=== PATIENT | female | born 1985 | race Two or more races ===

== ENCOUNTER 2016-10-27 22:10 | Emergency (ER) | payer SELFPAY ==
[~2016-10-27] VITALS: Ht 162.6 cm; Wt 65.8 kg
[2016-10-27] MEDS ORDERED: ONDANSETRON HCL/PF 4 MG/2 ML VIAL ONE (22:20)
[2016-10-27] MEDS ORDERED: diphenhydrAMINE HCL 50 MG/ML VIAL ONE (22:20)
[2016-10-27] MEDS ORDERED: methylPREDNISolone SOD SUCC 125 MG/2ML VIAL ONE (22:20)
[2016-10-27] MEDS ORDERED: FAMOTIDINE/PF INJ 20 MG/2 ML VIAL IV ONE ×2 (22:21→22:30)
--- NOTE | 2016-10-27 22:28 | NUR ---
RECEIVED PT. PT TRASNFERED TO ER BED 5.
--- NOTE | 2016-10-27 22:29 | NUR ---
PT BB RA FROM STORE FOR ALLERGIC REACTION S/P EATING AVOCADO. PT AOX3 RR EVEN AND UNLABORED. NO SOB NOTED. NAD NOTED. NO NVD AT THIS TIME. PT PLACED ON MONTIOR WAITING FOR MD BELLO.
[2016-10-27] MEDS ORDERED: methylPREDNISolone SOD SUCC 125 MG/2ML VIAL IV ONE (22:30)
[2016-10-27] MEDS ORDERED: IV NS 0.9% 1,000 ML BAG IV ONE (22:30)
[2016-10-27] MEDS ORDERED: diphenhydrAMINE HCL 50 MG/ML VIAL IV ONE (22:30)
[2016-10-27] MEDS ORDERED: ONDANSETRON HCL/PF 4 MG/2 ML VIAL IVP ONE (22:30)
--- NOTE | 2016-10-27 22:31 | NUR ---
IV ACCESS SPACE BUYER. BLOOD DRAWN FOR LABS. PT MEDICATED ORDERED.
[2016-10-27 22:35] LABS: BASOPHILS % (AUTO) 0.3 % (0.0-2.0); EOSINOPHILS % (AUTO) 0.3 % (0.0-6.0); HEMATOCRIT 37 % (33-45); HEMOGLOBIN 12.4 g/dL (11.5-14.8); LYMPHOCYTES # (AUTO) 4.7 /CMM (0.8-4.8); LYMPHOCYTES % (AUTO) 62.1 % (20.0-44.0); MEAN CORPUSCULAR HEMOGLOBIN 29 PG (26.0-33.0); MEAN CORPUSCULAR HGB CONC 34 g/dl (31.0-36.0); MEAN CORPUSCULAR VOLUME 87 fL (82-100); MONOCYTES # (AUTO) 0.2 /CMM (0.1-1.30); MONOCYTES % (AUTO) 3.1 % (2.0-12.0); NEUTROPHILS # (AUTO) 2.6 /CMM (1.8-8.9); NEUTROPHILS % (AUTO) 34.2 % (43.0-81.0); PLATELET COUNT (AUTO) 391 /CMM (150-450); RDW COEFFICIENT OF VARIATION 12.6 (11.5-15.0); RED BLOOD CELL COUNT(AUTO) 4.24 MIL/uL (4.0-5.2); WHITE BLOOD COUNT (AUTO) 7.6 K/uL (4.3-11.0)
[2016-10-27 22:47] LABS: CALCIUM, SERUM 8.7 mg/dL (8.5-10.1)
--- NOTE | 2016-10-27 22:50 | NUR ---
PT REFUSED CT SCAN. RISK AND BENEFITS EXPLAINED X3. DR. DAVISON MADE AWARE.
[2016-10-27 22:51] LABS: POTASSIUM 2.6 mmol/L (3.5-5.1)
--- NOTE | 2016-10-27 23:06 | NUR ---
Patient does not wish to proceed with medical care recommended by Dr. Thurman. Patient given information related to possible complications, up to and including , which could occur as a result of leaving the hospital at this time. Patient verbalizes understanding of risks involved due to leaving against medical advice. Patient has signed AMA form.
[2016-10-27] MEDS ORDERED: POTASSIUM CL. PREMIX PERIPHER. 0 ML ONE (23:45)
[2016-10-27] MEDS ORDERED: POTASSIUM CHLORIDE 20 MEQ TAB.PRT.SR PO ONE (23:52)
[2016-10-28] MEDS ORDERED: IV NS 0.9% 500 ML BAG IV ONE
[2016-10-28] MEDS ORDERED: POTASSIUM CHLORIDE 20 MEQ TAB.PRT.SR PO ONE ×2
[2016-10-28] MEDS ORDERED: POTASSIUM CHLORIDE 10 MEQ/50 ML PREMIXED IVPB FOR PERIPHERAL LINE IV ONE
--- NOTE | 2016-10-28 | NUR ---
IV removed. Catheter intact and site benign. Pressure and 4x4 applied to site. No bleeding noted. Patient discharged to home in stable condition. Written and verbal after care instructions given. Patient verbalizes understanding of instruction. ambulatory with a steady gait. instructed pt not to drive. pt verbalize understanding. accompnaied by son and mother in law.
[2016-10-28 00:02] VITALS: BP 118/78
== END 2016-10-28 00:03 | disposition home or self-care (01) ==
LOC: ER 22:13
DX: T78.40XA Allergy, unspecified, initial encounter (principal); R10.84 Generalized abdominal pain; E87.6 Hypokalemia; Z53.20 Procedure and treatment not carried out because of patient's decision for unspecified reasons
CPT/HCPCS: 36415; 80048; 82962; 85025; 93005; 96361; 96374; 96375; 99285; A4606; J2405; J2930; J3490; J7030; Z7610; J1200; J3480; J7040